=== PATIENT | female | born 1945 | race Caucasian/White ===

== ENCOUNTER 2018-06-20 15:03 | Emergency (ER) | payer OTHER ==
[2018-06-20 15:13] VITALS: BP 136/69; PULSE 83; TEMP 97.9; BMI 25.4
[2018-06-20] MEDS ORDERED: IBUPROFEN 600 MG TABLET (FP) PO ONE ×2 (16:39→16:42)
--- NOTE | 2018-06-20 16:45 | PDOC ---
History of Present Illness - General Chief Complaint: Pain, Acute Stated Complaint: LT KNEE PAIN Time Seen by Provider: 06/20/18 15:36 History Source: Patient, Care Provider Exam Limitations: No Limitations - History of Present Illness Initial Comments: 06/20/18 16:40 73 yo F w/ a h/o HTN, asthma comes in with daughter c/o R sided knee pain s/p slip and fall. She slipped on lettuce on the floor, landed on her R side. Denies head trauma, no LOC, no head injury, no pain anywhere else, no numbness/ tingling, no weakness. ABle to ambulate but with pain. Pt applied ice but did not take any meds for pain. NO other complaints today. 06/20/18 16:41 Past History - Past Medical History Allergies/Adverse Reactions: Allergies Allergy/AdvReac Type Severity Reaction Status Date / Time No Known Allergies Allergy Verified 06/20/18 15:09 Home Medications: Ambulatory Orders Acetaminophen [Tylenol] 975 mg PO Q4H 3 Days #15 capsule 06/20/18 Asthma: Yes - Surgical History Orthopedic Surgery: Yes (1993 in , tripped + fell -> [facility]) - Suicide/Smoking/Psychosocial Hx Smoking Status: No Smoking History: Never smoked Number of Cigarettes Smoked Daily: 0 Drug/Substance Use Hx: No Substance Use Type: None Review of Systems - Review of Systems Able to Perform ROS?: Yes Constitutional: No: Chills, Fever, Malaise, Night Sweats HEENTM: No: Eye Pain, Recent change in vision, Throat Pain Respiratory: No: Cough, Shortness of Breath Cardiac (ROS): No: Chest Pain, Palpitations, Chest Tightness ABD/GI: No: Diarrhea, Nausea, Vomiting, Abdominal cramping : No: Dysuria, Hematuria Musculoskeletal: No: Back Pain Integumentary: No: Rash Neurological: No: Headache, Numbness, Dizziness Psychiatric: No: Change in Appetite Endocrine: No: Unexplained Weight Loss *Physical Exam - Vital Signs Last Vital Signs Temp Pulse Resp BP Pulse Ox 97.9 F 83 18 136/69 99 06/20/18 15:11 06/20/18 15:11 06/20/18 15:11 06/20/18 15:11 06/20/18 15:11 - Physical Exam General Appearance: Yes: Nourished. No: Apparent Distress HEENT: positive: JOHANA, Normal Voice. negative: Pale Conjunctivae, Scleral Icterus (R), Scleral Icterus (L) Neck: positive: Supple. negative: Decreased range of motion, Tender midline Respiratory/Chest: negative: Respiratory Distress, Accessory Muscle Use Cardiovascular: positive: Regular Rate Musculoskeletal: positive: Normal Inspection. negative: CVA Tenderness, Decreased Range of Motion Extremity: positive: Normal Capillary Refill, Normal Inspection, Normal Range of Motion, Other (R knee with mild swleling and tenderness laterally. FROM, 5/5 strength. Able to straight leg raise. Good pulses distally. Full sensory function. Good cap refill, no skin changes). negative: Tender, Pedal Edema Integumentary: positive: Normal Color, Dry. negative: Jaundice, Rash Neurologic: positive: Fully Oriented, Alert, Normal Mood/Affect Moderate Sedation - Procedure Monitoring Vital Signs: Procedure Monitoring Vital Signs Temperature 97.9 F 06/20/18 15:11 Pulse Rate 83 06/20/18 15:11 Respiratory Rate 18 06/20/18 15:11 Blood Pressure 136/69 06/20/18 15:11 O2 Sat by Pulse Oximetry (%) 99 06/20/18 15:11 ED Treatment Course - RADIOLOGY Radiology Studies Ordered: Category Date Time Status KNEE 3 POS-RIGHT [RAD] Stat Radiology 06/20/18 16:39 Ordered Medical Decision Making - Medical Decision Making 06/20/18 16:45 73 yo F w/ knee injury. WIll do xrays R/O fracture. Will give motrin and reassess 06/20/18 17:48 Xray reviewed, no signs of fracture, degenerative changes seen. WIll place in gil wrap and give orthopedics follow up. Pt will call Dr. Diaz's office for follow up Return for worsening/concerning symptoms Pt ambulating out of ED in NAD Pt verbalizes understanding and agrees with plan *DC/Admit/Observation/Transfer Diagnosis at time of Disposition: Arthritis of knee, right Right knee injury Qualifiers: Encounter type: initial encounter Qualified Code(s): S89.91XA - Unspecified injury of right lower leg, initial encounter - Discharge Dispostion Disposition: HOME Condition at time of disposition: Stable - Referrals Referrals: Racquel Mena [Primary Care Provider] - Abel Diaz DO [Staff Physician] - - Patient Instructions Additional Instructions: Weight bearing as tolerated to the right leg. Call dr. Diaz, orthopedist to schedule a follow up appointment with him. You may take tylenol as need for pain. - Post Discharge Activity
== END 2018-06-20 18:07 | disposition home or self-care (01) ==
LOC: JERFT 15:03
DX: S89.81XA Other specified injuries of right lower leg, initial encounter (principal); M13.861 Other specified arthritis, right knee; W01.0XXA Fall on same level from slipping, tripping and stumbling without subsequent striking against object, initial encounter; Y93.89 Activity, other specified; Y92.038 Other place in apartment as the place of occurrence of the external cause; Y99.8 Other external cause status; I10 Essential (primary) hypertension; J45.909 Unspecified asthma, uncomplicated
CPT/HCPCS: 73562-TC-RT-FY; 99281-25

== ENCOUNTER 2021-04-09 01:44 | Emergency (ER) | payer OTHER ==
[2021-04-09 02:15] VITALS: TEMP 99.2; BMI 20.9
[2021-04-09] MEDS ORDERED: DEXAMETHASONE SOD PHOSPHATE 4 MG/1 ML VIAL IVPUSH ONE (02:21)
[2021-04-09] MEDS ORDERED: DEXAMETHASONE 4 MG TABLET (FP) PO ONE (02:59)
[2021-04-09] MEDS ORDERED: PT OWN MED DRAWER 7, Y5N ONE (03:12)
[2021-04-09] MEDS ORDERED: DEXAMETHASONE 4 MG TABLET (FP) ONE (03:13)
[2021-04-09 04:46] VITALS: BP 167/72; PULSE 98
== END 2021-04-09 05:00 | disposition home or self-care (01) ==
LOC: JER 01:44
PROC: 3E0333Z Introduction of Anti-inflammatory into Peripheral Vein, Percutaneous Approach (ICD-10-PCS; principal; 2021-04-09)
PROC: 3E033NZ Introduction of Analgesics, Hypnotics, Sedatives into Peripheral Vein, Percutaneous Approach (ICD-10-PCS; 2021-04-09)
PROC: 3E0234Z Introduction of Serum, Toxoid and Vaccine into Muscle, Percutaneous Approach (ICD-10-PCS; 2021-04-09)
DX: R06.02 Shortness of breath (principal)
CPT/HCPCS: 71045-TC-FY; 93005; 93010; 99285-25